=== PATIENT | female | born 1990 | race Caucasian/White ===

== ENCOUNTER 2017-10-17 19:54 | Emergency (ER) | payer BC ==
[2017-10-17] MEDS ORDERED: Sodium Chloride 0.9% 5 ML Syringe FLUSH PRN (20:08)
[2017-10-17] MEDS: Acetaminophen 500 MG Tab PO ONE (20:20)
[2017-10-17] MEDS: Sodium Chloride 0.9% 1,000 ML IV ONE (20:50)
[2017-10-17 20:57] LABS: CHLORIDE,CL 101 mmol/L (98-115); SODIUM,NA 137 mmol/L (136-145)
--- NOTE | 2017-10-17 21:00 | EDM.PDOC ---
ED HPI GENERAL MEDICAL PROBLEM - General Chief Complaint: General Stated Complaint: Fever in Time Seen by Provider: 10/17/17 20:15 Source of Information: Reports: Patient History Limitations: Reports: No Limitations - History of Present Illness INITIAL COMMENTS - FREE TEXT/NARRATIVE: 26 YO WF [id number] 37 weeks who presents to ER with fever/chills and mild contractions which began tonight. Pt called [facility] in [place] and was told to start antiviral medication due to recent influenza exposure. Pt complaining of nasal congestion and mild cough with fever/chills which began tonight. Pt denies any chest pain or shortness of breath. Pt reports mild low back pain. Pt states she was exposed to Influenza A over the weekend but didn't develop symptoms until tonight. Pt reports she was seen by her OB yesterday and was told she is 1cm dilated. Pt denies vaginal bleeding, loss of mucous plug or rupture of membranes. Pt denies any dysuria, or urgency. Onset: Today Onset Date: 10/17/17 Duration: Day(s): (1) Location: Reports: Generalized Quality: Reports: Ache Severity: Mild Improves with: Reports: None Worsens with: Reports: None Associated Symptoms: Reports: Cough, Fever/Chills, Loss of Appetite, Malaise. Denies: Chest Pain, Headaches, Nausea/Vomiting, Rash, Shortness of Breath, Syncope, Weakness Treatments TRANSPORTATION MANAGER: Reports: Acetaminophen - Related Data Allergies Allergy/AdvReac Type Severity Reaction Status Date / Time No Known Allergies Allergy Verified 10/17/17 19:57 Home Meds: Home Meds Docusate Sodium [Colace] 100 mg PO DAILY PRN 10/17/17 [History] Oseltamivir [Tamiflu] 75 mg PO BID #10 cap 10/17/17 [Rx] Vit W-Ca,Fe,FA(<1 mg) [ Vitamins] 1 tab PO DAILY 10/17/17 [ History] Past Medical History Respiratory History: Reports: Pneumothorax Other Respiratory History: right pneumothorax in 2008 [facility] History: Reports: - Past Surgical History HEENT Surgical History: Reports: Tonsillectomy Social & Family History - Tobacco Use Smoking Status *Q: Never Smoker Second Hand Smoke Exposure: No - Caffeine Use Caffeine Use: Reports: None - Alcohol Use Days Per Week of Alcohol Use: 1 Number of Drinks Per Day: 2 Total Drinks Per Week: 2 - Recreational Drug Use Recreational Drug Use: No ED ROS GENERAL - Review of Systems Review Of Systems: See Below Constitutional: Reports: Fever, Chills, Malaise HEENT: Denies: Ear Pain, Nose Pain, Throat Pain Respiratory: Reports: Cough. Denies: Shortness of Breath, Wheezing, Pleuritic Chest Pain, Sputum, Hemoptysis Cardiovascular: Reports: No Symptoms Endocrine: Reports: No Symptoms GI/Abdominal: Reports: No Symptoms : Reports: No Symptoms Musculoskeletal: Reports: No Symptoms Skin: Reports: No Symptoms Neurological: Reports: No Symptoms Psychiatric: Reports: No Symptoms Hematologic/Lymphatic: Reports: No Symptoms Immunologic: Reports: No Symptoms ED EXAM, GENERAL - Physical Exam Exam: See Below Exam Limited By: No Limitations General Appearance: Alert, WD/WN, No Apparent Distress Ears: Normal External Exam, Normal Canal, Hearing Grossly Normal, Normal TMs Ear Exam: Bilateral Ear: Auricle Normal, Canal Normal, TM normal Nose: Clear Rhinorrhea Throat/Mouth: Normal Inspection, Normal Lips, Normal Teeth, Normal Gums, Normal Oropharynx, Normal Voice, No Airway Compromise Head: Atraumatic, Normocephalic Neck: Normal Inspection, Supple, Non-Tender, Full Range of Motion Respiratory/Chest: No Respiratory Distress, Lungs Clear, Normal Breath Sounds, No Accessory Muscle Use, Chest Non-Tender Cardiovascular: Normal Peripheral Pulses, Regular Rate, Rhythm, No Edema, No Gallop, No JVD, No Murmur, No Rub GI/Abdominal: Normal Bowel Sounds, Soft, Non-Tender, No Organomegaly, No Distention, No Abnormal Bruit, No Mass Back Exam: Normal Inspection, Full Range of Motion, NT Extremities: Normal Inspection, Normal Range of Motion, Non-Tender, Normal Capillary Refill, No Pedal Edema Neurological: Alert, Oriented, CN II-XII Intact, Normal Cognition, Normal Gait, Normal Reflexes, No Motor/Sensory Deficits Psychiatric: Normal Affect, Normal Mood Skin Exam: Warm, Dry, Intact, Normal Color, No Rash Lymphatic: No Adenopathy Course - Vital Signs Last Recorded V/S: Last Vital Signs Temp 38.0 C 10/17/17 20:20 Pulse Resp BP Pulse Ox - Orders/Labs/Meds Orders: Active Orders 24 hr Category Date Time Status Peripheral IV Care [RC] . DIRECTED Care 10/17/17 20:10 Active CMP [COMPREHENSIVE METABOLIC PN,CMP] [CHEM] Stat Lab 10/17/17 20:30 Received INFLUENZA A+B AG SCREEN [RM] Stat Lab 10/17/17 20:34 Uncollected Sodium Chloride 0.9% [Normal Saline] 1,000 ml Med 10/17/17 20:10 Active IV .BOLUS Sodium Chloride 0.9% [Syrex Flush] Med 10/17/17 20:08 Active 5 ml FLUSH Q8HR PRN Peripheral IV Insertion Adult [OM.PC] Stat Oth 10/17/17 20:08 Ordered Medication Orders Sodium Chloride (Normal Saline) 1,000 mls @ 999 mls/hr IV .BOLUS ONE Stop: 10/17/17 21:10 Sodium Chloride (Syrex Flush) 5 ml FLUSH Q8HR PRN PRN Reason: Keep Vein Open Labs: Laboratory Tests 10/17/17 10/17/17 Range/Units 20:30 20:30 WBC 8.6 (5.0-10.0) 10^3/uL RBC 3.72 L (3.80-5.50) 10^6/uL Hgb 11.3 L (12.0-16.0) g/dL Hct 33.2 L (37.0-47.0) % MCV 89.3 (82.0-92.0) fL MCH 30.3 (27.0-31.0) pg MCHC 33.9 (32.0-36.0) g/dL RDW 12.2 (11.5-14.5) % Plt Count 146 L (150-300) 10^3/uL MPV 10.9 H (7.4-10.4) fL Neut % (Auto) 75.0 H (50.0-70.0) % Lymph % (Auto) 8.9 L (20.0-40.0) % [place] % (Auto) 15.2 H (2.0-8.0) % Eos % (Auto) 0.2 L (1.0-3.0) % Baso % (Auto) 0.7 (0.0-1.0) % Neut # (Auto) 6.4 (2.5-7.0) 10^3/uL Lymph # (Auto) 0.8 L (1.0-4.0) 10^3/uL [place] # (Auto) 1.3 H (0.1-0.8) 10^3/uL Eos # (Auto) 0.0 L (0.1-0.3) 10^3/uL Baso # (Auto) 0.1 (0.0-0.1) 10^3/uL Specimen Type Urincc Urine Color Yellow (YELLOW) Urine Appearance Clear (CLEAR) Urine pH 7.0 (5.0-9.0) Ur Specific [place] 1.015 (1.005-1.030) Urine Protein Negative (NEGATIVE) mg/dL Urine Glucose (UA) Negative (NEGATIVE) mg/dL Urine Ketones 15 H (NEGATIVE) mg/dL Urine Occult Blood Negative (NEGATIVE) Urine Nitrite Negative (NEGATIVE) Urine Bilirubin Negative (NEGATIVE) Urine Urobilinogen 0.2 (0.2-1.0) E.U./dL Ur Leukocyte Esterase Negative (NEGATIVE) Urine RBC 0-5 /HPF Urine WBC 0-5 /HPF Ur Epithelial Cells Few /LPF Urine Bacteria Rare (NONE TO FEW) /HPF Meds: Medications Generic Name Dose Route Start Last Admin Trade Name Freq PRN Reason Stop Dose Admin Sodium Chloride 1,000 mls @ 999 mls/hr 10/17/17 20:10 Normal Saline IV 10/17/17 21:10 .BOLUS ONE Sodium Chloride 5 ml 10/17/17 20:08 Syrex Flush FLUSH Q8HR PRN Keep Vein Open Discontinued Medications Generic Name Dose Route Start Last Admin Trade Name Freq PRN Reason Stop Dose Admin Acetaminophen 1,000 mg 10/17/17 20:10 10/17/17 20:20 Tylenol Extra Strength PO 10/17/17 20:11 1,000 mg ONETIME ONE Administration Departure - Departure Time of Disposition: 21:10 Disposition: Home, Self-Care 01 Condition: Good Clinical Impression: Influenza A, Silvio Luna' contraction - Discharge Information Prescriptions: Oseltamivir [Tamiflu] 75 mg PO BID #10 cap Instructions: Influenza, Adult, [id number], Juab Luna Contractions Referrals: Lilia Tena PA-C [Primary Care Provider] - Additional Instructions: 1. start Tamiflu 75mg po BID 2. tylenol 1g PO Q6 3. sudafed PRN 4. Afrin NS BID x 3 days PRN 5. plenty of fluids 6. 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 return to ER for worsening symptoms - My Orders Last 24 Hours: My Active Orders 10/17/17 20:08 Sodium Chloride 0.9% [Syrex Flush] 5 ml FLUSH Q8HR PRN Peripheral IV Insertion Adult [OM.PC] Stat 10/17/17 20:10 Peripheral IV Care [RC] . DIRECTED Sodium Chloride 0.9% [Normal Saline] 1,000 ml IV .BOLUS 10/17/17 20:30 CMP [COMPREHENSIVE METABOLIC PN,CMP] [CHEM] Stat 10/17/17 20:34 INFLUENZA A+B AG SCREEN [RM] Stat - Assessment/Plan Last 24 Hours: My Active Orders 10/17/17 20:08 Sodium Chloride 0.9% [Syrex Flush] 5 ml FLUSH Q8HR PRN Peripheral IV Insertion Adult [OM.PC] Stat 10/17/17 20:10 Peripheral IV Care [RC] . DIRECTED Sodium Chloride 0.9% [Normal Saline] 1,000 ml IV .BOLUS 10/17/17 20:30 CMP [COMPREHENSIVE METABOLIC PN,CMP] [CHEM] Stat 10/17/17 20:34 INFLUENZA A+B AG SCREEN [RM] Stat Assessment:: 1. fever/chills 2. Juab Luna contractions 3. Influenza A Plan: 1. start Tamiflu 75mg po BID 2. tylenol 1g PO Q6 3. sudafed PRN 4. Afrin NS BID x 3 days PRN 5. plenty of fluids 6. 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 return to ER for worsening symptoms
[2017-10-17 21:10] VITALS: BP 100/42
[2017-10-17] MEDS: Oseltamivir 75 MG Cap PO SCH (21:10)
== END 2017-10-17 21:25 | disposition home or self-care (01) ==
LOC: KA.ED 19:54
DX: O98.513 Other viral diseases complicating pregnancy, third trimester (principal); J10.1 Influenza due to other identified influenza virus with other respiratory manifestations; O47.1 False labor at or after 37 completed weeks of gestation; Z3A.37 37 weeks gestation of pregnancy; Z79.899 Other long term (current) drug therapy
CPT/HCPCS: 36415; 80053; 81001; 85025; 87804; 99283; A9270-GY

== ENCOUNTER 2018-01-10 09:37 | Emergency (ER) | payer BC ==
[2018-01-10 09:56] VITALS: BP 99/67
--- NOTE | 2018-01-10 10:21 | EDM.PDOC ---
ED HPI GENERAL MEDICAL PROBLEM - General Chief Complaint: Upper Extremity Injury/Pain Stated Complaint: FELL YESTERDAY - PAIN TODAY Time Seen by Provider: 01/10/18 10:15 Source of Information: Reports: Patient History Limitations: Reports: No Limitations - History of Present Illness INITIAL COMMENTS - FREE TEXT/NARRATIVE: Patient is a 27-year-old female who presents to the emergency department this morning with a complaint of left-sided pain. Patient states while carrying her 2-month-old child last evening at 1800, she accidentally slipped on tile and fell backwards landing on left side. Patient states initially not much discomfort. Woke this morning and pain increased. Patient denies head injury, loss of consciousness, nausea, vomiting, dizziness, or any injury to the . Onset: Sudden Onset Date: 01/09/18 Onset Time: 18:00 Duration: Hour(s): Location: Reports: Chest, Back Quality: Reports: Ache Severity: Mild Improves with: Reports: Rest Worsens with: Reports: Movement Context: Reports: Trauma Associated Symptoms: Reports: No Other Symptoms Left Middle Generalized Pain Score (Numeric/FACES): 7 - Related Data Allergies Allergy/AdvReac Type Severity Reaction Status Date / Time No Known Allergies Allergy Verified 01/10/18 09:51 Home Meds: Home Meds Vit W-Ca,Fe,FA(<1 mg) [ Vitamins] 1 tab PO DAILY 10/17/17 [ History] Past Medical History HEENT History: Reports: None Respiratory History: Reports: Pneumothorax Other Respiratory History: right pneumothorax in 2008 [facility] History: Reports: Other OB/BYN History: - Infectious Disease History Infectious Disease History: Reports: Chicken Pox - Past Surgical History HEENT Surgical History: Reports: Tonsillectomy Respiratory Surgical History: Reports: None Social & Family History - Tobacco Use Smoking Status *Q: Never Smoker Second Hand Smoke Exposure: No - Caffeine Use Caffeine Use: Reports: Tea - Alcohol Use Days Per Week of Alcohol Use: 1 Number of Drinks Per Day: 2 Total Drinks Per Week: 2 - Recreational Drug Use Recreational Drug Use: No Review of Systems - Review of Systems Review Of Systems: ROS reveals no pertinent complaints other than HPI. Constitutional: Reports: No Symptoms Eyes: Reports: No Symptoms Ears: Reports: No Symptoms Nose: Reports: No Symptoms Mouth/Throat: Reports: No Symptoms Respiratory: Reports: Pleuritic Chest Pain Cardiovascular: Reports: No Symptoms GI/Abdominal: Reports: No Symptoms Genitourinary: Reports: No Symptoms Musculoskeletal: Reports: No Symptoms Skin: Reports: Bruising Neurological: Reports: No Symptoms Psychiatric: Reports: No Symptoms ED EXAM, GENERAL - Physical Exam Exam: See Below Exam Limited By: No Limitations General Appearance: Alert, WD/WN, No Apparent Distress Eye Exam: Bilateral Eye: Normal Inspection Nose: Normal Inspection, No Blood Throat/Mouth: Normal Inspection, Normal Oropharynx, No Airway Compromise Head: Atraumatic, Normocephalic Neck: Normal Inspection, Supple, Non-Tender, Full Range of Motion Respiratory/Chest: No Respiratory Distress, Lungs Clear, Normal Breath Sounds, Other (Minimal tenderness left axilla without ecchymosis, edema, crepitus, or flail chest.) Cardiovascular: Normal Peripheral Pulses, Regular Rate, Rhythm, No Murmur GI/Abdominal: Normal Bowel Sounds, Soft, Non-Tender, Pelvis Stable Back Exam: Normal Inspection, Other (Left superior buttock with small abrasion and ecchymotic area. No hematoma or pelvis discomfort.). No: CVA Tenderness (L ), CVA Tenderness (R) Extremities: Normal Inspection, Normal Range of Motion, Non-Tender Neurological: Alert, Oriented, Normal Cognition Psychiatric: Normal Affect, Normal Mood Skin Exam: Warm, Dry, Intact, Normal Color, No Rash, Ecchymosis (As above) Course - Vital Signs Last Recorded V/S: Last Vital Signs Temp 96.0 F 01/10/18 09:47 Pulse 80 01/10/18 09:47 Resp 18 01/10/18 09:47 BP 99/67 01/10/18 09:47 Pulse Ox 97 01/10/18 09:47 - Orders/Labs/Meds Orders: Active Orders 24 hr Category Date Time Status Ribs 2V w Chest Lt [CR] Stat Exams 01/10/18 10:16 Ordered - Radiology Interpretation Free Text/Narrative:: Chest x-ray with left rib view shows no acute fracture or pulmonary abnormality. - Re-Assessments/Exams Free Text/Narrative Re-Assessment/Exam: 01/10/18 11:12 Patient afebrile, nontoxic appearing, vital signs stable. Patient will follow- up with PCP or return to ER if symptoms continue. Departure - Departure Time of Disposition: 11:14 Disposition: Home, Self-Care 01 Condition: Good Clinical Impression: Contusion Qualifiers: Encounter type: initial encounter Contusion area: thoracic wall Contusion of thoracic wall detail: unspecified area of thoracic wall Qualified Code(s): S20.20XA - Contusion of thorax, unspecified, initial encounter - Discharge Information Instructions: Contusion, [id number], Rib Contusion Referrals: Clinic,[facility] [Primary Care Provider] - Additional Instructions: Follow-up with PCP in next 2-3 days. Return to emergency sooner if symptoms continue or worsen. Take Tylenol for discomfort as other medication may not be appropriate for breast feeding. - My Orders Last 24 Hours: My Active Orders 01/10/18 10:16 Ribs 2V w Chest Lt [CR] Stat - Assessment/Plan Last 24 Hours: My Active Orders 01/10/18 10:16 Ribs 2V w Chest Lt [CR] Stat Assessment:: Rib pain secondary to fall.
== END 2018-01-10 11:23 | disposition home or self-care (01) ==
LOC: KA.ED 09:37
DX: S20.20XA Contusion of thorax, unspecified, initial encounter (principal); W01.0XXA Fall on same level from slipping, tripping and stumbling without subsequent striking against object, initial encounter
CPT/HCPCS: 71101-LT; 99283

== ENCOUNTER 2020-10-11 22:28 | Emergency (ER) | payer BC ==
[2020-10-11] MEDS ORDERED: Sodium Chloride 0.9% 1,000 ML IV ONE (22:33)
[2020-10-11] MEDS ORDERED: Ondansetron 4 MG/2 ML SDV IVPUSH ONE (22:33)
[2020-10-11] MEDS ORDERED: Sodium Chloride 0.9% 10 ML Syringe FLUSH PRN (22:50)
[2020-10-11 22:54] VITALS: BP 109/64; PULSE 70
[2020-10-11] MEDS ORDERED: HYDROmorphone 1 MG/ML Syringe IVPUSH ONE (23:00)
--- NOTE | 2020-10-11 23:00 | EDM.PDOC ---
ED HPI GENERAL MEDICAL PROBLEM - General Chief Complaint: Abdominal Pain Stated Complaint: ABDOMINAL PAIN/VOMITING Time Seen by Provider: 10/11/20 22:45 Source of Information: Reports: Patient History Limitations: Reports: No Limitations - History of Present Illness INITIAL COMMENTS - FREE TEXT/NARRATIVE: 29 YO WF PRESENTS TO ER COMPLAINING OF GENERALIZED ABDOMINAL PAIN WHICH BEGAN 6PM TONIGHT. PT REPORTS PAIN WAXES AND WANES. PT REPORTS EPISODE OF VOMITING AND DIARRHEA X 1 TONIGHT. PT DENIES FEVER/CHILLS, NO BLOOD IN STOOL, NO DYSURIA OR URINARY FREQUENCY. PT HAD A BABY 4 MONTHS AGO AND DENIES MENSES SINCE GETTING OVER 1 YEAR AGO. PT IS SEXUALLY ACTIVE. Onset: Today Duration: Hour(s): (5) Location: Reports: Abdomen Quality: Reports: Ache Severity: Moderate Improves with: Reports: None Worsens with: Reports: Eating Associated Symptoms: Reports: Loss of Appetite, Nausea/Vomiting. Denies: Chest Pain, Cough, Fever/Chills, Headaches, Shortness of Breath, Syncope Upper Abdomen Pain Score (Numeric/FACES): 7 Lower Back Pain Score (Numeric/FACES): 7 - Related Data Allergies Allergy/AdvReac Type Severity Reaction Status Date / Time No Known Allergies Allergy Verified 10/11/20 22:53 Home Meds: Home Meds Vit Calc,Iron,Folic [ Vitamins] 1 tab PO DAILY 10/17/17 [History] Famotidine [Pepcid] 20 mg PO BID #10 tab 10/12/20 [Rx] Ondansetron [Zofran ODT] 4 mg PO Q6H PRN #10 tab.dis 10/12/20 [Rx] Simethicone [Gas-X] 125 mg PO Q6H PRN #30 tab.chew 10/12/20 [Rx] Past Medical History HEENT History: Reports: None Respiratory History: Reports: Pneumothorax Other Respiratory History: right pneumothorax in 2008 [employer] History: Reports: Other [employer] History: - Infectious Disease History Infectious Disease History: Reports: Chicken Pox - Past Surgical History HEENT Surgical History: Reports: Tonsillectomy Respiratory Surgical History: Reports: None Social & Family History - Caffeine Use Caffeine Use: Reports: Tea ED ROS GENERAL - Review of Systems Review Of Systems: See Below Constitutional: Reports: No Symptoms HEENT: Reports: No Symptoms Respiratory: Reports: No Symptoms Cardiovascular: Reports: No Symptoms Endocrine: Reports: No Symptoms GI/Abdominal: Reports: Abdominal Pain, Diarrhea, Nausea, Vomiting : Reports: No Symptoms Musculoskeletal: Reports: No Symptoms Skin: Reports: No Symptoms Neurological: Reports: No Symptoms Psychiatric: Reports: No Symptoms Hematologic/Lymphatic: Reports: No Symptoms Immunologic: Reports: No Symptoms ED EXAM, GI/ABD - Physical Exam Exam: See Below Exam Limited By: No Limitations General Appearance: Alert, WD/WN, No Apparent Distress Throat/Mouth: Normal Inspection, Normal Lips, Normal Teeth, Normal Gums, Normal Oropharynx, Normal Voice, No Airway Compromise Head: Atraumatic, Normocephalic Neck: Normal Inspection, Supple, Non-Tender, Full Range of Motion Respiratory/Chest: No Respiratory Distress, Lungs Clear, Normal Breath Sounds, No Accessory Muscle Use, Chest Non-Tender Cardiovascular: Normal Peripheral Pulses, Regular Rate, Rhythm, No Edema, No Gallop, No JVD, No Murmur, No Rub GI/Abdominal Exam: Normal Bowel Sounds, Soft, No Organomegaly, No Distention, No Abnormal Bruit, No Mass, Pelvis Stable, Tender (EPIGASTRIC TENDERNESS ) Back Exam: Normal Inspection, Full Range of Motion, NT Extremities: Normal Inspection, Normal Range of Motion, Non-Tender, Normal Capillary Refill, No Pedal Edema Neurological: Alert, Oriented, CN II-XII Intact, Normal Cognition, Normal Gait, No Motor/Sensory Deficits Psychiatric: Normal Affect, Normal Mood Skin Exam: Warm, Dry, Intact, Normal Color, No Rash Lymphatic: No Adenopathy Course - Vital Signs Last Recorded V/S: Last Vital Signs Temp 97.8 F 10/11/20 22:53 Pulse 70 10/11/20 22:53 Resp 14 10/11/20 22:53 BP 109/64 10/11/20 22:53 Pulse Ox 98 10/11/20 22:53 - Orders/Labs/Meds Orders: Active Orders 24 hr Category Date Time Status Peripheral IV Care [RC] . DIRECTED Care 10/11/20 22:50 Active Abdomen Pelvis w Cont [CT] Stat Exams 10/11/20 23:19 Ordered Sodium Chloride 0.9% [Normal Saline] 1,000 ml Med 10/11/20 22:33 Active IV .BOLUS Sodium Chloride 0.9% [Normal Saline] 50 ml Med 10/11/20 23:45 Active IV ASDIRECTED Sodium Chloride 0.9% [Saline Flush] Med 10/11/20 22:50 Active 10 ml FLUSH Q8HR PRN Peripheral IV Insertion Adult [OM.PC] Routine Oth 10/11/20 22:50 Ordered Medication Orders Sodium Chloride (Normal Saline) 1,000 mls @ 999 drops/hr IV .BOLUS ONE Stop: 10/12/20 13:33 Last Admin: 10/11/20 22:52 Dose: 999 drops/hr Documented by: HARDEEP Sodium Chloride (Normal Saline) 50 mls @ 200 mls/hr IV ASDIRECTED VARGHESE Last Admin: 10/12/20 00:12 Dose: 200 mls/hr Documented by: AMAURI Sodium Chloride (Saline Flush) 10 ml FLUSH Q8HR PRN PRN Reason: keep vein open Labs: Laboratory Tests 10/11/20 10/11/20 10/11/20 Range/Units 22:55 22:55 23:58 WBC 10.99 H (5.00-10.00) 10^3/uL RBC 5.21 (3.80-5.50) 10^6/uL Hgb 15.8 D (12.0-16.0) g/dL Hct 45.9 (37.0-47.0) % MCV 88.1 (82.0-92.0) fL MCH 30.3 (27.0-31.0) pg MCHC 34.4 (32.0-36.0) g/dL RDW 12.2 (11.5-14.5) % Plt Count 229 (150-400) 10^3/uL MPV 11.7 H (7.4-10.4) fL Immature Gran % (Auto) 0.1 (0.0-5.0) % Neut % (Auto) 80.9 H (50.0-70.0) % Lymph % (Auto) 9.8 L (20.0-40.0) % [place] % (Auto) 8.2 H (2.0-8.0) % Eos % (Auto) 0.9 L (1.0-3.0) % Baso % (Auto) 0.1 (0.0-1.0) % Neut # (Auto) 8.89 H (2.50-7.00) 10^3/uL Lymph # (Auto) 1.08 (1.00-4.00) 10^3/uL [place] # (Auto) 0.90 H (0.10-0.80) 10^3/uL Eos # (Auto) 0.10 (0.10-0.30) 10^3/uL Baso # (Auto) 0.01 (0.00-0.10) 10^3/uL Immature Gran # (Auto) 0.01 (0.00-0.50) 10^3/uL Sodium 139 (136-145) mmol/L Potassium 3.6 (3.5-5.1) mmol/L Chloride 100 (98-107) mmol/L Carbon Dioxide 26.5 (21.0-32.0) mmol/L Anion Gap 16.1 H (5-15) mmol/L BUN 15 (7-18) mg/dL Creatinine 0.74 (0.51-1.17) mg/dL Est Cr Clr Drug Dosing 100.94 mL/min Estimated GFR (MDRD) > 60 mL/min Glucose 111 (70-140) mg/dL Calcium 9.8 (8.7-10.3) mg/dL Total Bilirubin 0.5 (0.2-1.0) mg/dL AST 23 (15-37) U/L ALT 27 (14-63) U/L Alkaline Phosphatase 85 (46-116) U/L Total Protein 9.0 H (6.4-8.2) g/dL Albumin 4.96 (3.40-5.00) g/dL Lipase 74 (73-393) U/L HCG, Qual Negative (NEGATIVE) Specimen Type Urinblad Urine Color Dark yellow H (YELLOW) Urine Appearance Slightly cloudy H (CLEAR) Urine pH 7.0 (5.0-9.0) Ur Specific [place] 1.020 (1.005-1.030) Urine Protein 30 H (NEGATIVE) mg/dL Urine Glucose (UA) Negative (NEGATIVE) mg/dL Urine Ketones 80 H (NEGATIVE) mg/dL Urine Occult Blood Negative (NEGATIVE) Urine Nitrite Negative (NEGATIVE) Urine Bilirubin Small H (NEGATIVE) Urine Urobilinogen 0.2 (0.2-1.0) E.U./dL Ur Leukocyte Esterase Negative (NEGATIVE) Urine RBC 0-5 (0-5) /HPF Urine WBC 5-10 H (0-5) /HPF Ur Epithelial Cells Few /LPF Urine Bacteria Rare (NONE TO FEW) /HPF Urine Mucus Rare H (NEGATIVE) /LPF Meds: Medications Generic Name Dose Route Start Last Admin Trade Name Freq PRN Reason Stop Dose Admin Sodium Chloride 1,000 mls @ 999 drops/hr 10/11/20 22:33 10/11/20 22:52 Normal Saline IV 10/12/20 13:33 999 drops/hr .BOLUS ONE Administration Sodium Chloride 50 mls @ 200 mls/hr 10/11/20 23:45 10/12/20 00:12 Normal Saline IV 200 mls/hr ASDIRECTED VARGHESE Administration Sodium Chloride 10 ml 10/11/20 22:50 Saline Flush FLUSH Q8HR PRN keep vein open Discontinued Medications Generic Name Dose Route Start Last Admin Trade Name Freq PRN Reason Stop Dose Admin Hydromorphone HCl 1 mg 10/11/20 23:00 10/11/20 23:06 Dilaudid IVPUSH 10/11/20 23:01 1 mg ONETIME ONE Administration Iopamidol 75 ml 10/11/20 23:36 10/12/20 00:12 Isovue-370 (76%) IVPUSH 10/11/20 23:37 75 ml ONETIME ONE Administration Ondansetron HCl 4 mg 10/11/20 22:33 10/11/20 22:51 Zofran IVPUSH 10/11/20 22:34 4 mg ONETIME ONE Administration - Radiology Interpretation Free Text/Narrative:: CT ABD/PELVIS- MULTIPLE AIR/FLUID LEVELS CONSISTENT WITH ENTERITIS - Re-Assessments/Exams Free Text/Narrative Re-Assessment/Exam: 10/11/20 23:21 RE-EXAMINED AFTER DILAUDID- GENERALIZED ABDOMINAL PAIN UNRELIEVED BY PAIN MEDICATION Departure - Departure Time of Disposition: 00:41 Disposition: Home, Self-Care 01 Condition: Good Clinical Impression: Gastroenteritis - Discharge Information Prescriptions: Simethicone [Gas-X] 125 mg PO Q6H PRN #30 tab.chew PRN Reason: Gas Famotidine [Pepcid] 20 mg PO BID #10 tab Ondansetron [Zofran ODT] 4 mg PO Q6H PRN #10 tab.dis PRN Reason: Vomiting Instructions: Viral Gastroenteritis, Adult, [id number] Referrals: Arianne Bowens MD [Primary Care Provider] - Forms: ED Department Discharge Additional Instructions: 1. DISCHARGE HOME 2. ZOFRAN 4MG ODT EVERY 4-6 HOURS NEEDED FOR NAUSEA/VOMITING 3. PEPCID 20MG TWICE/DAY X 5 DAYS 4. SIMETHICONE 125MG EVERY 6 HOURS NEEDED FOR GAS 5. FOLLOW UP WITH PCP FOR FURTHER EVALUATION AND TREATMENT NEEDED 6. RETURN TO ER FOR WORSENING SYMPTOMS Sepsis Event Note (ED) - Focused Exam Vital Signs: Vital Signs Temp Pulse Resp BP Pulse Ox 10/11/20 22:53 97.8 F 70 14 109/64 98 - My Orders Last 24 Hours: My Active Orders 10/11/20 22:33 Sodium Chloride 0.9% [Normal Saline] 1,000 ml IV .BOLUS 10/11/20 22:50 Peripheral IV Care [RC] . DIRECTED Sodium Chloride 0.9% [Saline Flush] 10 ml FLUSH Q8HR PRN Peripheral IV Insertion Adult [OM.PC] Routine 10/11/20 23:19 Abdomen Pelvis w Cont [CT] Stat 10/11/20 23:45 Sodium Chloride 0.9% [Normal Saline] 50 ml IV ASDIRECTED - Assessment/Plan Last 24 Hours: My Active Orders 10/11/20 22:33 Sodium Chloride 0.9% [Normal Saline] 1,000 ml IV .BOLUS 10/11/20 22:50 Peripheral IV Care [RC] . DIRECTED Sodium Chloride 0.9% [Saline Flush] 10 ml FLUSH Q8HR PRN Peripheral IV Insertion Adult [OM.PC] Routine 10/11/20 23:19 Abdomen Pelvis w Cont [CT] Stat 10/11/20 23:45 Sodium Chloride 0.9% [Normal Saline] 50 ml IV ASDIRECTED Assessment:: 1. GASTROENTERITIS Plan: 1. DISCHARGE HOME 2. ZOFRAN 4MG ODT EVERY 4-6 HOURS NEEDED FOR NAUSEA/VOMITING 3. PEPCID 20MG TWICE/DAY X 5 DAYS 4. SIMETHICONE 125MG EVERY 6 HOURS NEEDED FOR GAS 5. FOLLOW UP WITH PCP FOR FURTHER EVALUATION AND TREATMENT NEEDED 6. RETURN TO ER FOR WORSENING SYMPTOMS
[2020-10-11 23:25] LABS: ANION GAP 16.1 mmol/L (5-15); CHLORIDE,CL 100 mmol/L (98-107); SODIUM,NA 139 mmol/L (136-145)
[2020-10-11] MEDS ORDERED: Iopamidol 755 Mg/ML 75 ML Bottle IVPUSH ONE (23:36)
[2020-10-11] MEDS ORDERED: Sodium Chloride 0.9% 50 ML IV SCH (23:45)
[2020-10-12] MEDS ORDERED: Ondansetron 4 MG Tab.DIS PO ONE (01:00)
--- NOTE | 2020-10-12 08:01 | CT ---
[id number] CT/CT Abdomen Pelvis W IV EXAM: ABDOMEN AND PELVIS CT WITH CONTRAST INDICATION: Abdominal pain. COMPARISON: None. DISCUSSION: 2 mm nonobstructing left intrarenal calculus. Small fat-containing umbilical hernia. Fluid-filled nondilated distal small bowel and colonic loops are nonspecific, but could be seen with enteritis. No pneumatosis, bowel dilation, free air free fluid. The liver, gallbladder, spleen, pancreas, adrenal glands, right kidney and the appendix are normal in appearance. The osseous structures are unremarkable. Mild tree-in-bud infiltrates in the posterior basal right lower lobe are likely infectious or inflammatory. IMPRESSION: Fluid-filled nondilated distal small bowel and colonic loops. These changes are nonspecific but could be seen with enteritis. Mild tree-in-bud infiltrates in the right lower lobe. Dylan Das MD 10/12/20 0801 Thank you for allowing us to participate in the care of your patient.
== END 2020-10-12 01:07 | disposition home or self-care (01) ==
LOC: KA.ED 22:28 → SUPCPDRO 22:28 → KA.ED 10-12 01:07
DX: K52.9 Noninfective gastroenteritis and colitis, unspecified (principal); Z79.899 Other long term (current) drug therapy
CPT/HCPCS: 74177; 80053; 81001; 83690; 84703; 85025; 96374; 96375; 99284; 99284-25; J1170; J2405; J7030; Q9967

== ENCOUNTER 2022-04-01 12:20 | Emergency (ER) | payer BC ==
[2022-04-01 12:45] VITALS: BP 122/66; PULSE 76
== END 2022-04-01 13:30 | disposition home or self-care (01) ==
LOC: KA.ED 12:20
DX: O99.891 Other specified diseases and conditions complicating pregnancy (principal); R25.2 Cramp and spasm; Z3A.00 Weeks of gestation of pregnancy not specified; Z79.899 Other long term (current) drug therapy; Z86.16 Personal history of COVID-19
CPT/HCPCS: 36415; 85379; 93005; 99283

== ENCOUNTER 2022-06-27 20:00 | Emergency (ER) | payer BC ==
[2022-06-27] MEDS ORDERED: Sodium Chloride 0.9% 10 ML Syringe FLUSH PRN (20:58)
[2022-06-27] MEDS: Sodium Chloride 0.9% 1,000 ML IV ONE (21:00)
[2022-06-27 21:12] LABS: ANION GAP 11.8 mmol/L (5-15); CHLORIDE,CL 103 mmol/L (98-107); SODIUM,NA 138 mmol/L (136-145)
[2022-06-27 21:13] LABS: ESTIMATED GFR 104 mL/min (>=60)
[2022-06-27 21:45] VITALS: BP 118/66; PULSE 85
== END 2022-06-27 22:20 | disposition home or self-care (01) ==
LOC: KA.ED 20:00
DX: R42 Dizziness and giddiness (principal); R29.810 Facial weakness; R53.83 Other fatigue; Z79.899 Other long term (current) drug therapy; Z86.16 Personal history of COVID-19
CPT/HCPCS: 70450; 80053; 81003; 84703; 85025; 99284